=== PATIENT | female | born 1935 | race Asian ===

== ENCOUNTER 2018-10-10 14:56 | Emergency (ER) | payer MEDICARE, BC ==
[~2018-10-10] VITALS: Ht 165.1 cm; Wt 54.4 kg
--- NOTE | 2018-10-10 14:54 | Emergency Room Report ---
History of Present Illness General Chief Complaint: Multiple Trauma/Fall Source: Patient Present Illness HPI Patient is a 83-year-old female who presented after fall from standing. Patient reportedly had been walking her dog. She was pulled to the ground after her dog began to betito another dog. She denies loss of consciousness. She reports having pain to the face as well as loss of teeth. She reports having some right-sided chest discomfort. She does not take anticoagulation. Patient was brought in by EMS. She denies recent tetanus vaccine. Injury occurred just prior to arrival. Patient reports having prior history of diabetes but does not take any medications. Allergies: Coded Allergies: No Known Allergies (Unverified , 10/10/18) Patient History Past Medical History: DM Reviewed Nursing Documentation: PMH: Agreed; PSxH: Agreed Nursing Documentation-PMH Past Medical History: No History, Except For Hx Diabetes: Yes Review of Systems All Other Systems: negative except mentioned in HPI Physical Exam Vital Signs Date Time Temp Pulse Resp B/P (MAP) Pulse Ox O2 Delivery O2 Flow Rate FiO2 10/10/18 14:45 97.9 83 18 131/87 (102) 99 Room Air Sp02 EP Interpretation: reviewed, normal General Appearance: normal inspection, alert, no apparent distress, GCS 15 Head: normocephalic, atraumatic Eyes: normal eye exam, PERRL, lids + conjunctiva normal, no hyphema ENT: TMs + canals normal, oropharynx normal, no walker signs, other - facial laceration, left side facial swelling, chin laceration Neck: trach midline, no bony tend, full range of motion without pain Respiratory: effort normal, no retractions, clear to auscultation, chest symmetrical, speaking in full sentences Cardiovascular: regular rate, rhythm, no JVD Cardiovascular #2: 2+ radial (R), 2+ radial (L), 2+ dorsalis pedis (R), 2+ dorsalis pedis (L) Gastrointestinal: normal inspection, non-tender, non-distended, no rebound/ guarding, normal bowel sounds Genitourinary: normal inspection Musculoskeletal: normal ROM, non-tender, back normal Lymphatic: normal inspection Neurologic: normal inspection, CN II-XII intact, oriented x3, sensory intact, motor strength/tone normal, normal speech Psychiatric: normal inspection, memory normal, mood normal, no suicidal/ homicidal ideation Procedures Laceration/Wound Repair Laceration/Wound Repair #1: Wound Location: face Wound's Depth, Shape: superficial Wound Length (cm): 1 Wound Explored: clean Irrigated w/ Saline (ccs): 20 Betadine Prep?: Yes Anesthesia: Lidocaine w/ Epi Volume Anesthetic (ccs): 2 Wound Debrided: minimal Wound Repaired With: sutures Suture Size/Type: 6:0 Number of Sutures: 3 Sterile Dressing Applied?: Yes Patient Tolerated: Well Complications: None Laceration/Wound Repair #2: Wound Location: face Wound's Depth, Shape: linear Wound Length (cm): 1 Wound Explored: clean Irrigated w/ Saline (ccs): 20 Betadine Prep?: Yes Anesthesia: Lidocaine w/ Epi Volume Anesthetic (ccs): 2 Wound Debrided: minimal Wound Repaired With: sutures Suture Size/Type: 6:0 Number of Sutures: 4 Patient Tolerated: Well Complications: None Medical Decision Making Diagnostic Impression: Primary Impression: Fall Additional Impressions: Facial laceration Avulsion of multiple teeth due to trauma Chest wall contusion ER Course Patient presented after a fall and was noted to have multiple locations of pain. Differential diagnosis include was not limited to head injury, facial fracture, cervical spine injury, rib fracture among others. Because of complexity of patient's case laboratory testing and imaging studies were ordered.CT of the head, cervical spine, facial bones and chest were ordered to the patient's multiple locations of pain after the fall.CT of the head read by radiology showed no evidence of acute fracture. Patient was noted to have possible root abscesses in the right maxillary incisors however this is likely from acute trauma. Patient was advised that she should be admitted to the hospital due to multiple rib fractures and advanced age for further monitoring for development of effusion or pneumonia or increased confusion. Patient was advised to return if she changed her mind. Patient appears to have capacity to refuse admission. Patient was noted to be ambulatory without assistance at time of AMA. Labs Test 10/10/18 15:19 White Blood Count 6.9 K/UL (4.8-10.8) Red Blood Count 3.91 M/UL (4.20-5.40) Hemoglobin 12.5 G/DL (12.0-16.0) Hematocrit 35.4 % (37.0-47.0) Mean Corpuscular Volume 91 FL (80-99) Mean Corpuscular Hemoglobin 31.8 PG (27.0-31.0) Mean Corpuscular Hemoglobin Concent 35.2 G/DL (32.0-36.0) Red Cell Distribution Width 11.0 % (11.6-14.8) Platelet Count 228 K/UL (150-450) Mean Platelet Volume 5.2 FL (6.5-10.1) Neutrophils (%) (Auto) 70.5 % (45.0-75.0) Lymphocytes (%) (Auto) 20.9 % (20.0-45.0) Monocytes (%) (Auto) 7.5 % (1.0-10.0) Eosinophils (%) (Auto) 0.4 % (0.0-3.0) Basophils (%) (Auto) 0.7 % (0.0-2.0) Prothrombin Time 9.7 SEC (9.30-11.50) Prothromb Time International Ratio 0.9 (0.9-1.1) Activated Partial Thromboplast Time 23 SEC (23-33) Sodium Level 136 MMOL/L (136-145) Potassium Level 4.3 MMOL/L (3.5-5.1) Chloride Level 101 MMOL/L (98-107) Carbon Dioxide Level 29 MMOL/L (21-32) Anion Gap 6 mmol/L (5-15) Blood Urea Nitrogen 25 mg/dL (7-18) Creatinine 0.7 MG/DL (0.55-1.30) Estimat Glomerular Filtration Rate mL/min (>60) Glucose Level 290 MG/DL (74-106) Calcium Level 8.8 MG/DL (8.5-10.1) Total Bilirubin 0.5 MG/DL (0.2-1.0) Aspartate Amino Transf (AST/SGOT) 56 U/L (15-37) Alanine Aminotransferase (ALT/SGPT) 34 U/L (12-78) Alkaline Phosphatase 110 U/L (46-116) Total Protein 6.8 G/DL (6.4-8.2) Albumin 3.2 G/DL (3.4-5.0) Globulin 3.6 g/dL Albumin/Globulin Ratio 0.9 (1.0-2.7) Last Vital Signs Date Time Temp Pulse Resp B/P (MAP) Pulse Ox O2 Delivery O2 Flow Rate FiO2 10/10/18 14:45 97.9 83 18 131/87 (102) 99 Room Air Status: improved Disposition: AGAINST MEDICAL ADVICE Condition: Serious Scripts Docusate Sodium* (COLACE*) 100 Mg Capsule 100 MG ORAL TWICE A DAY, #30 CAP Prov: Mynor May MD 10/10/18 Hydrocodone Bit/Acetaminophen 5-325* (NORCO 5-325*) 1 Each Tablet 1 TAB ORAL Q6H PRN for For Pain, #20 TAB 0 Refills Prov: Mynor May MD 10/10/18 Mynor May MD Oct 10, 2018 14:54
[2018-10-10 14:58] VITALS: BP 131/87
--- NOTE | 2018-10-10 15:03 | NUR ---
ED Nurse Note: pt was brought in by ambulance due to facila abrasion and pain and loosing tooth after a fall while the pt is walking her dog and dog ran after another dog and the dog dragged her, pt is also complaining of pain on the right rib and right shoulder when she changes position. pt denies loc, vs within normal limit. will continue to monitor.
[2018-10-10] MEDS ORDERED: Tetanus/Diptheria/Pertussis IM ONE (15:15)
[2018-10-10] MEDS ORDERED: Lidocaine 2% 20mg/ml/EPI 0.01mg/ml 20ml INJ ONE (15:15)
--- NOTE | 2018-10-10 15:19 | NUR ---
ED Nurse Note: pt went to ct with tech
--- NOTE | 2018-10-10 15:48 | NUR ---
ED Nurse Note: aliced on bedside doing the suturing. pt signed the consent form.
--- NOTE | 2018-10-10 16:07 | Diagnostic Imaging Report ---
Indications: Facial pain, status post fall Technique: Spiral images obtained through the facial bones. No IV contrast utilized. Multiplanar reconstructions were generated.Total dose length product 1897.69 mGycm. CTDIvol(s) 70.38,28.19 mGy. Dose reduction achieved using automated exposure control Comparison: none Findings: There is evidence of soft tissue contusion in the left malar region. No acute fractures. No worrisome sinus opacification. Nasal septum is midline. No radiopaque foreign body demonstrated. There is evidence of prior bilateral cataract surgery. The mastoids are clear. There is evidence of multiple prior dental implants. There is evidence of prior extraction of the right maxillary incisors. Lucencies at the site of the previous apical roots are demonstrated, apical root abscesses not excludable. A small mucous retention cyst versus polyp is seen in the right maxillary sinus. There is minimal mucosal disease within the ethmoid sinuses on the left. The frontal and sphenoid sinuses are clear. No facial or upper cervical mass or adenopathy demonstrated. Included intracranial structures are unremarkable. Impression: Evidence of left malar region soft tissue injury No acute bony trauma Possible apical root abscesses at site of previously extracted right maxillary incisors Evidence of prior dental surgery. Minimal sinus disease as described The CT scanner at [facility] is accredited by the [employer] and the scans are performed using protocols designed to limit radiation exposure to as low as reasonably achievable to attain images of sufficient resolution adequate for diagnostic evaluation.
[2018-10-10 16:08] LABS: ANION GAP 6 mmol/L (5-15); BLOOD UREA NITROGEN 25 mg/dL (7-18); CALCIUM 8.8 MG/DL (8.5-10.1); CARBON DIOXIDE 29 MMOL/L (21-32); CHLORIDE 101 MMOL/L (98-107); CREATININE 0.7 MG/DL (0.55-1.30); POTASSIUM 4.3 MMOL/L (3.5-5.1); SODIUM 136 MMOL/L (136-145)
[2018-10-10 16:14] LABS: ALANINE AMINOTRANSFERASE 34 U/L (12-78); ALBUMIN 3.2 G/DL (3.4-5.0); ALBUMIN/GLOBULIN RATIO 0.9 (1.0-2.7); ALKALINE PHOSPHATASE 110 U/L (46-116); ASPARTATE AMINO TRANSFERASE 56 U/L (15-37); BILIRUBIN,TOTAL 0.5 MG/DL (0.2-1.0)
[2018-10-10 16:17] LABS: INR 0.9 (0.9-1.1)
--- NOTE | 2018-10-10 16:17 | Diagnostic Imaging Report ---
Indications: Pain, status post fall Technique: Spiral acquisitions obtained through the brain. Angled axial and coronal 5 x 5 mm slices were reconstructed. Total dose length product 1897.69 mGycm. CTDI vol(s) 70.38,28.19 mGy. Dose reduction achieved using automated exposure control Comparison: None. Findings: There is age-related enlargement of the ventricles and extra axial CSF spaces. No acute intracranial hemorrhage nor edema. No mass effect nor midline shift. There is age-related enlargement of the ventricles and extra-axial CSF spaces. The mastoids are clear. Visualized orbits and sinuses are unremarkable. Impression: Age-related volume loss Negative for acute intracranial bleed or mass effect. The CT scanner at [facility] is accredited by the [employer] and the scans are performed using protocols designed to limit radiation exposure to as low as reasonably achievable to attain images of sufficient resolution adequate for diagnostic evaluation.
[2018-10-10 16:25] LABS: BASOPHILS % (AUTO) 0.7 % (0.0-2.0); EOSINOPHILS % (AUTO) 0.4 % (0.0-3.0); HEMATOCRIT 35.4 % (37.0-47.0); HEMOGLOBIN 12.5 G/DL (12.0-16.0); LYMPHOCYTES % (AUTO) 20.9 % (20.0-45.0); MEAN CORPUSCULAR VOLUME 91 FL (80-99); MONOCYTES % (AUTO) 7.5 % (1.0-10.0); NEUTROPHILS % (AUTO) 70.5 % (45.0-75.0); PLATELET COUNT 228 K/UL (150-450); RED BLOOD COUNT 3.91 M/UL (4.20-5.40); WHITE BLOOD COUNT 6.9 K/UL (4.8-10.8)
--- NOTE | 2018-10-10 16:26 | Diagnostic Imaging Report ---
Indication: Reason For Exam: PAIN Technique: Spiral acquisitions obtained through the cervical spine. No IV contrast utilized. Multiplanar reconstructions were generated. Total dose length product neck pain status post fall mGycm. CTDIvol(s) 10.47 mGy. Dose reduction achieved using automated exposure control. Comparison: none Findings: Bony alignment is normal. No prevertebral soft tissue swelling. No acute fractures. No dislocations. There is multilevel degenerative disc narrowing of the lower cervical spine, with areas of neural foraminal stenosis at C5-6 and C6-7. No significant spinal stenosis. The included extra spinal soft tissues are unremarkable. Impression: No acute bony trauma Degenerative changes, as described The CT scanner at [facility] is accredited by the [employer] and the scans are performed using protocols designed to limit radiation exposure to as low as reasonably achievable to attain images of sufficient resolution adequate for diagnostic evaluation.
[2018-10-10 16:30] VITALS: BP 128/87
--- NOTE | 2018-10-10 16:40 | Diagnostic Imaging Report ---
Clinical Indication: Chest pain, status post fall, right-sided chest discomfort Technique: Spiral acquisitions obtained through the chest. No IV contrast utilized, per referring physician request. Multiplanar reconstructions generated. Total dose length product 504.12 mGycm. CTDIvol(s) 13.23 mGy. Dose reduction achieved using automated exposure control Comparison: none Findings: Focal area of sclerosis is seen in the posterolateral right eighth rib. There is and acute fracture deformity of the lateral right sixth rib, displaced by about one half bone width. There are acuity indeterminate fracture deformities of the lateral fourth and fifth ribs. There is a fracture of the anterior corner of the right glenoid. This is nondisplaced. There is slight loss of height of the T6 vertebral body. The remainder of the bones are intact. The lungs demonstrate posterior compressive atelectatic changes, predominantly on the right. No evidence of contusion or pneumothorax. No infiltrates, effusions, masses, or nodules. There is fusiform ectasia of the ascending thoracic aorta, which measures 4.2 x 4 cm in diameter. The heart size is normal. No evidence of pericardial effusion. The esophagus is mildly dilated and gas-filled. No mediastinal or hilar mass or adenopathy demonstrated. No axillary or chest wall mass or adenopathy. The included upper abdominal anatomy is unremarkable. Impression: Positive for minimally displaced fracture of the anterior corner of the right glenoid Acute fracture of the right sixth rib. Fractures of the adjacent fourth and fifth rib are of indeterminate age Loss of height of the T6 vertebral body, consistent with compression fracture, age indeterminate. 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 Further follow-up recommended Compressive atelectatic changes of the lungs. Dilated gas-filled esophagus, probably reflecting presbyesophagus changes The CT scanner at [facility] is accredited by the [employer] and the scans are performed using protocols designed to limit radiation exposure to as low as reasonably achievable to attain images of sufficient resolution adequate for diagnostic evaluation.
[2018-10-10] MEDS ORDERED: COLACE100 MG ORAL (17:33)
[2018-10-10] MEDS ORDERED: NORCO 5-325 TA1 EACH ORAL (17:33)
[2018-10-10 17:42] VITALS: BP 131/87
--- NOTE | 2018-10-10 17:42 | NUR ---
ED Nurse Note: pt left againts medical advice, pt was picked up by her tenant [employer], pt wound cleanse, pt advised to come back to the ed if symptoms worses. benefit and risk explained to pt but pt still decieded to leave. pt left with all belonging.
== END 2018-10-10 17:42 | disposition left against medical advice (07) ==
LOC: EDBD 14:56 → EMR 17:30
DX: S01.81XA Laceration without foreign body of other part of head, initial encounter (principal); S03.2XXA Dislocation of tooth, initial encounter; S20.219A Contusion of unspecified front wall of thorax, initial encounter; Z23 Encounter for immunization; W19.XXXA Unspecified fall, initial encounter; Y93.K1 Activity, walking an animal; Y92.9 Unspecified place or not applicable; E11.9 Type 2 diabetes mellitus without complications
CPT/HCPCS: 36415; 70450; 70486; 71250; 72125; 80053; 85025; 85610; 85730; 90471; 90715; 96374; 99284